=== PATIENT | female | born 1985 | race Caucasian/White ===

== ENCOUNTER 2024-01-05 05:02 | Inpatient (IN) | payer BC ==
[~2024-01-05 05:02] MED LIST: Anucort-HC SUPPOSITORY PR PRN; BENADRYL 50 MG/ML IV PRN; CLARITIN 10 MG PO PRN; CORTISONE 1% CREAM TP PRN; DEMEROL 50 MG IV PRN; Dulcolax 10 MG SUPP PR PRN; HOLD NARCOTIC ANALGESICS AND SEDATIVES X24 HR MC PRN; MORPHINE SULFATE 2 MG INJ IV PRN; Mylicon 80MG PO PRN; Narcan 0.4 MG/ML IV PRN; Nubain 10 MG/ML IV PRN; PERCOCET TABLET 5/325MG PO PRN; Pepcid 20 MG VIAL IV SCH; Reglan 10 MG/2 ML IV SCH; Sodium Chloride 0.9% 10 ML FLUSH Syringe IJ PRN; TUCKS TP PRN
[2024-01-05 06:06] LABS: Absolute Neutrophil Ct (ANC) 5.42 x10^3/uL (1.4-6.9); BASOPHIL % 0.6 % (0.0-0.4); Basophil (Absolute #) 0.05 x10^3/uL (0-0.4); Eosinophil % 1.3 % (0.00-5.0); Eosinophil (Absolute #) 0.11 x10^3/uL (0-0.5); Hematocrit 33.5 % (35-47); Hemoglobin 10.9 g/dL (12.0-16.0); IMMATURE GRAN # 0.03 x10^3u/L (0.00-0.03); IMMATURE GRAN % 0.4 % (0.00-0.4); Lymphocytes % 27.5 % (24.0-44.0); Mean Cell Volume 95.2 fL (78-100); Mean Corpuscular Hgb Concent. 32.5 g/dL (32-36); Monocyte (Absolute #) 0.46 x10^3/uL (0.0-1.3); Monocytes % 5.5 % (0.0-12.0); Neutrophil % 64.7 % (36.0-66.0); Platelet Count 358 x10^3/uL (150-450); Red Blood Count 3.52 x10^6/uL (4.1-5.4); Red Cell Distribution Width 14.6 % (11.5-14.0); White Blood Count 8.4 x10^3/uL (4.0-10.5)
[2024-01-05 06:16] LABS: INR 0.86 (0.8-3.0); PROTIME 9.5 SECONDS (9.4-12.5); PTT 24.4 SECONDS (25.1-36.5)
[2024-01-05 06:29] LABS: Appearance Clear (Clear); Bacteria None Seen /HPF (None Seen); Bilirubin Negative (Negative); Blood Negative (Negative); Epithelial Cells None Seen /HPF (None Seen); Glucose, Urine Negative (Negative); Hyaline Casts NONE SEEN /LPF (0-2); Ketones Trace (Negative); Leukocyte Esterase Negative (Negative); Nitrite Negative (Negative); Protein,Urine Dip Negative (Negative); RBC 0-2 /HPF (0-5); Urobilinogen 0.2 mg/dL (0.2); WBC 0-2 /HPF (0-5)
[2024-01-05 06:30] LABS: ADD URINE CULTURE? NO (NO)
[2024-01-05 06:56] LABS: ABO TYPING O; Antibody Screen NEGATIVE (NEGATIVE); RH TYPING POSITIVE
[2024-01-05 07:47] LABS: Amphetamine,Urine NEGATIVE (NEGATIVE); Barbiturate,Urine NEGATIVE (NEGATIVE); Benzodiazepine,Urine NEGATIVE (NEGATIVE); Cocaine,Urine NEGATIVE (NEGATIVE); Methadone,Urine NEGATIVE (NEGATIVE); Opiate,Urine NEGATIVE (NEGATIVE); PCP,Urine NEGATIVE (NEGATIVE); THC,Urine NEGATIVE (NEGATIVE)
[2024-01-05] MEDS: SOD CITRATE-CITRIC ACID SOLN PO SCH (08:02)
[2024-01-05] MEDS: CEFAZOLIN 2 GM-D5W BAG** 2 GM/50 ML ML IV SCH (08:03)
[2024-01-05] MEDS: Lactated Ringers 1,000 ML IV ONE (08:03)
[2024-01-05] MEDS: Reglan 10 MG/2 ML IV SCH (08:07)
[2024-01-05] MEDS: Pepcid 20 MG VIAL IV SCH (08:07)
[2024-01-05] MEDS ORDERED: Astramorph-Pf 5 MG/10 ML ONE (08:24)
[2024-01-05] MEDS ORDERED: Pitocin 10 UNITS/ML ONE ×2 (08:25→09:59)
[2024-01-05] MEDS ORDERED: Lactated Ringers 2,000 ML IV ONE (08:39)
[2024-01-05] MEDS ORDERED: PHENYLEPHRINE HCL ONE (08:47)
[2024-01-05] MEDS ORDERED: Versed 2 MG/2 ML Injection ONE (09:39)
[2024-01-05] MEDS ORDERED: AlbuRx 25% 50ML VIAL*** 100 ML IV ONE (09:42)
[2024-01-05] MEDS ORDERED: DIPRIVAN 200 MG/20 ML IV ONE (09:49)
[2024-01-05] MEDS ORDERED: Lactated Ringers 1,000 ML IV ONE (09:53)
[2024-01-05] MEDS ORDERED: Naropin 0.5% 30 ML VIAL ONE (10:02)
[2024-01-05] MEDS ORDERED: Epinephrine Preservative Free 1 MG/ML ONE (10:02)
--- NOTE | 2024-01-05 10:46 | OP ---
OB OP NOTE - OPERATIVE NOTE Surgery Date: 01/05/24 Surgery Time: 09:01 PREOPERATIVE DIAGNOSIS: IUP 37 0/7 weeks, History of myomectomy, Gestational Diabetes, Advanced Maternal Age. POST OPERATIVE DIAGNOSIS: Same Procedure: Primary Low Transverse Section Surgeon: DO Brody ANESTHESIA: Spinal with Duramorph ESTIMATED BLOOD LOSS: 1619 cc CONDITION: Stable COMPLICATIONS: Adhesions from prior abdominal surgery. HISTORY - HISTORY HISTORY: HISTORY: 38yo at 37 0/7 weeks scheduled for Primary Low Transverse Section. Patient had a Myomectomy from a fundal location, abdominal surgery. Patient had M consult and their recomendation was for Primary Delivery between 37 0/7 and 38 6/7. Patient was Gestational Diabetic and Advanced maternal age. During routine testing, patient found to be kiko. It was decided to perform Primary Section at 37 0/7. FINDINGS - FINDINGS FINDINGS: FINDINGS: Living male weighing 713oz and Apgars of 8/9. Normal tubes and ovaries bilaterally. Several adhesions at level of peritoneum making entry into cavity difficult. DESCRIPTION OF PROCEDURE - DESCRIPTION OF PROCEDURE DESCRIPTION OF PROCEDURE: DESCRIPTION OF PROCEDURE: Patient was taken to operative suite and placed on the table in the sitting postion. Monitors were placed. Anesthesia administered Spinal anesthesia and Duramorph. Patient was then placed in the supine position. Patient was prepped and draped in the usual fashion. A time out was performed. Ancef 2 grams was given IV in the OR prior to starting the procedure. Patient's prior incision was visualized. It was 2 fingers above the symphysis. Skin incision was made in the [place] fashion with the knife. Skin incision was carried to the fascia utilizing the scalpel and the bovie cautery. Small bleeders were cauterized in the subcutaneous tissue. The fascia was incised in the midline. The fascial incision was extended laterally with curved mayos and pickups with teeth. This was performed bilaterally. Two kochers were placed on the superior edge of the fascia and it was elevated. Blunt dissection and zuniga scissors were utilized to dissect the fascia from the rectus muscle. Two kochers were placed on the inferior edge of the fascia and blunt and sharp dissection with zuniga scissors was performed to separate the fascia from the underlying muscles. Attention was directed to the peritroneum in the midline. Hemostats were placed, but significant scar tissue prevented separation in the midline. Zuniga and metezenbaum scissors were utilized to extend incision. Blunt dissection was carried out and the peritoneal cavity was exposed. The uterus was checked for rotation and was found to be to the left of midline. The peritoneum was elevated at the bladder flap and metzenbaum scissors were utilized to make incision. An anamolus vein was to the left of midline and was leaking blood. 3-4, 2-0 and 0 Vicryl sutures were placed to stop the bleeding. These were tagged for identification later in the procedure. Attention was directed to the lower uterine segment. A Knife was utilized in a low transverse fashion to make the uterine incision. Finger fracture technique was utilized to extend the uterine incision. Several veins started bleeding. The amniotic sac was visualized and ruptured with an Allis clamp. Clear fluid was present. The infants head was grasped with the surgeons hand and fundal pressure applied. The head was very high in the uterus. The head was ROT. There did not appear to be enough room for delivery of the head so the right rectus muscle was transected with bandage scissors. Fundal pressure was re- applied and the surgeon's hand utilized to attempt to guide the head for delivery. A kiwi vacuum was placed on the field. It was placed on the infant's head at 9:20 am, there was a pop-off at 9:21. 9:22 vacuum re-applied and head delivered at 9:22. The remainder of the delivered spontaneously. There was a loose nuchal cord. There was 5 minutes between AROM and delivery of . Living male weighing 7# 13 oz with apgars of 8/9. was handed to RN in attendance. was crying spontaneously. The uterus was externalized from the abdominal cavity and wrapped in a warm, moist lap. Penningtons were placed along the uterine incision. 0 Vicryl in a running, interlocking fashion. There was continued bleeding from several veins along the uterine incision. A second layer of 0-vicryl in a running fashion to obtain hemostasis. There continued to be bleeding from several veins on the uterus. Several interrupted sutures of 0-Vicryl were placed along the uterine incision to obtain hemostasis. Irrigation was performed. Lap and suture count was performed and was correct. The sutures tagged earlier were inspected, hemostatic and the tags cut. A lap placed over uterus and attention directed to the cul de sac. Irrigation was cul de sac was performed. The uterus was returned to the abdominal cavity. The pericolic gutters were irrigated and clots removed. The uterine incision was re-inspected and there was bleeding found on the maternal right side of the uterus. 2 figure of 8 of 0 Vicryl was placed to obtain hemostasis. Attention was directed to the right rectus muscle. Allis clamps were placed on the edges of the muscle. #1 Chromic was utilized in figure of 8 fashion and two interrupted sutures to re-approximate the rectus muscle. One suture of Chromic was utilized in the midline to re-approximate the rectus muscles in the midline. Irreigation was performed and everything was hemostatic. Lap and suture count was performed and was correct. 0-Vicryl was utilized in a running fashion to close the fascia. Good approximation was obtained. Irrigation was performed. Attention was directed to subcutaneous tissue and irrigation performed. 3-0 Vicryl, coated in antibiotics was utilized to close subcutaneous tissue. Insorb stapler was utilized to close the skin, some steri-strips were placed in the midline of the skin. Adhesive dressing was placed in the sterile fashion. Lap, needle and instrument counts were correct. EBL is 1619.
[2024-01-05 10:47] LABS: Hematocrit 28.2 % (35-47); Hemoglobin 9.1 g/dL (12.0-16.0)
[2024-01-05] MEDS: Zofran 4 MG/2 ML VIAL IV PRN (13:45)
[2024-01-05] MEDS ORDERED: Adacel Vial IM ONE (15:00)
[2024-01-05 15:07] LABS: Appearance Clear (Clear); Bacteria None Seen /HPF (None Seen); Bilirubin Negative (Negative); Blood Negative (Negative); Epithelial Cells None Seen /HPF (None Seen); Glucose, Urine Negative (Negative); Hyaline Casts NONE SEEN /LPF (0-2); Ketones 40 (Negative); Leukocyte Esterase Negative (Negative); Nitrite Negative (Negative); Protein,Urine Dip Negative (Negative); RBC 0-2 /HPF (0-5); Urobilinogen 0.2 mg/dL (0.2); WBC 0-2 /HPF (0-5)
[2024-01-05] MEDS: Compazine 10 MG/2 ML IV SCH (16:56)
[2024-01-05] MEDS: Dextrose 5%-Lr IV Solution 1000 ML 1,000 ML IV SCH (17:02)
--- NOTE | 2024-01-05 17:19 | PCM.NOTE ---
Date and Time: 01/05/24 177 Subjective Assessment: POD#0, Nausea and vomiting, Attempting to control with Compazine. Repeat CBC being drawn while present in the room. COntinure routine Post-operative orders. - Review of Systems Abdominal/Gastrointestinal: Nausea, Vomiting (Patient is unable to keep fluids or food down. Patient has had two doses of zofran and is receiving Compazine during exam.) OBJECTIVE DATA Vital Signs: Vital Signs - 24 hr Temp Pulse Resp BP Pulse Ox 01/05/24 13:30 82 20 101/60 100 01/05/24 13:00 100 01/05/24 12:15 97.8 F 85 18 114/57 100 01/05/24 12:00 97.8 F 85 18 114/57 100 01/05/24 11:45 82 18 123/58 100 01/05/24 11:30 88 18 134/53 100 01/05/24 11:15 84 20 136/60 100 01/05/24 11:00 97.8 F 85 18 136/60 100 01/05/24 08:25 98.1 F 79 18 119/67 99 01/05/24 06:20 98.4 F 81 16 116/77 97 01/05/24 05:30 97 01/05/24 05:19 98.4 F 81 16 116/77 97 01/05/24 05:02 98.4 F 81 16 116/77 97 Pain Assessment - Last Documented Pain Intensity 0 Intake and Output: Intake & Output 01/03/24 01/04/24 01/05/24 01/06/24 11:59 11:59 11:59 11:59 Output Total 800 Balance -800 Weight 86.636 kg Lab Results: Lab Results-Last 24 Hours 01/05/24 01/05/24 01/05/24 Range/Units 05:50 05:50 05:50 WBC 8.4 (4.0-10.5) x10^3/uL RBC 3.52 L (4.1-5.4) x10^6/uL Hgb 10.9 L (12.0-16.0) g/dL Hct 33.5 L (35-47) % MCV 95.2 (78-100) fL MCH 31.0 (26-32) pg MCHC 32.5 (32-36) g/dL RDW 14.6 H (11.5-14.0) % Plt Count 358 (150-450) x10^3/uL MPV 9.0 (7.5-11.0) fL Gran % 64.7 (36.0-66.0) % Immature Gran % (Auto) 0.4 (0.00-0.4) % Nucleat RBC Rel Count 0.0 (0.00-0.1) % Eos # (Auto) 0.11 (0-0.5) x10^3/uL Immature Gran # (Auto) 0.03 (0.00-0.03) x10^3u/L Absolute Lymphs (auto) 2.30 (1.0-4.6) x10^3/uL Absolute Monos (auto) 0.46 (0.0-1.3) x10^3/uL Absolute Nucleated RBC 0.00 (0.00-0.01) x10^3u/L Lymphocytes % 27.5 (24.0-44.0) % Monocytes % 5.5 (0.0-12.0) % Eosinophils % 1.3 (0.00-5.0) % Basophils % 0.6 (0.0-0.4) % Absolute Granulocytes 5.42 (1.4-6.9) x10^3/uL Basophils # 0.05 (0-0.4) x10^3/uL PT 9.5 (9.4-12.5) SECONDS INR 0.86 (0.8-3.0) APTT 24.4 L (25.1-36.5) SECONDS POC Glucometer (74 to 106) mg/dL Urine Color (Yellow) Urine Appearance (Clear) Urine pH (4.6-8.0) Ur Specific [place] (1.005-1.030) Urine Protein (Negative) Urine Glucose (UA) (Negative) mg/dL Urine Ketones (Negative) Urine Blood (Negative) Urine Nitrite (Negative) Urine Bilirubin (Negative) Urine Urobilinogen (0.2) mg/dL Ur Leukocyte Esterase (Negative) U Hyaline Cast (Auto) (0-2) /LPF Urine Microscopic RBC (0-5) /HPF Urine Microscopic WBC (0-5) /HPF Ur Epithelial Cells (None Seen) /HPF Urine Bacteria (None Seen) /HPF Urine Culture Reflexed (NO) Urine Opiates Level (NEGATIVE) Ur Methadone (NEGATIVE) Urine Barbiturates (NEGATIVE) Ur Phencyclidine (PCP) (NEGATIVE) Urine Amphetamine (NEGATIVE) U Benzodiazepine Level (NEGATIVE) Urine Cocaine (NEGATIVE) Urine Marijuana (THC) (NEGATIVE) ABO Group O Rh Factor POSITIVE Antibody Screen NEGATIVE (NEGATIVE) 01/05/24 01/05/24 01/05/24 Range/Units 06:00 10:42 14:57 WBC (4.0-10.5) x10^3/uL RBC (4.1-5.4) x10^6/uL Hgb 9.1 L (12.0-16.0) g/dL Hct 28.2 L (35-47) % MCV (78-100) fL MCH (26-32) pg MCHC (32-36) g/dL RDW (11.5-14.0) % Plt Count (150-450) x10^3/uL MPV (7.5-11.0) fL Gran % (36.0-66.0) % Immature Gran % (Auto) (0.00-0.4) % Nucleat RBC Rel Count (0.00-0.1) % Eos # (Auto) (0-0.5) x10^3/uL Immature Gran # (Auto) (0.00-0.03) x10^3u/L Absolute Lymphs (auto) (1.0-4.6) x10^3/uL Absolute Monos (auto) (0.0-1.3) x10^3/uL Absolute Nucleated RBC (0.00-0.01) x10^3u/L Lymphocytes % (24.0-44.0) % Monocytes % (0.0-12.0) % Eosinophils % (0.00-5.0) % Basophils % (0.0-0.4) % Absolute Granulocytes (1.4-6.9) x10^3/uL Basophils # (0-0.4) x10^3/uL PT (9.4-12.5) SECONDS INR (0.8-3.0) APTT (25.1-36.5) SECONDS POC Glucometer 76 (74 to 106) mg/dL Urine Color Yellow (Yellow) Urine Appearance Clear (Clear) Urine pH 7.0 (4.6-8.0) Ur Specific [place] 1.010 (1.005-1.030) Urine Protein Negative (Negative) Urine Glucose (UA) Negative (Negative) mg/dL Urine Ketones 40 A (Negative) Urine Blood Negative (Negative) Urine Nitrite Negative (Negative) Urine Bilirubin Negative (Negative) Urine Urobilinogen 0.2 (0.2) mg/dL Ur Leukocyte Esterase Negative (Negative) U Hyaline Cast (Auto) NONE SEEN (0-2) /LPF Urine Microscopic RBC 0-2 (0-5) /HPF Urine Microscopic WBC 0-2 (0-5) /HPF Ur Epithelial Cells None Seen (None Seen) /HPF Urine Bacteria None Seen (None Seen) /HPF Urine Culture Reflexed (NO) Urine Opiates Level (NEGATIVE) Ur Methadone (NEGATIVE) Urine Barbiturates (NEGATIVE) Ur Phencyclidine (PCP) (NEGATIVE) Urine Amphetamine (NEGATIVE) U Benzodiazepine Level (NEGATIVE) Urine Cocaine (NEGATIVE) Urine Marijuana (THC) (NEGATIVE) ABO Group Rh Factor Antibody Screen (NEGATIVE) 01/05/24 01/05/24 Range/Units Unknown Unknown WBC (4.0-10.5) x10^3/uL RBC (4.1-5.4) x10^6/uL Hgb (12.0-16.0) g/dL Hct (35-47) % MCV (78-100) fL MCH (26-32) pg MCHC (32-36) g/dL RDW (11.5-14.0) % Plt Count (150-450) x10^3/uL MPV (7.5-11.0) fL Gran % (36.0-66.0) % Immature Gran % (Auto) (0.00-0.4) % Nucleat RBC Rel Count (0.00-0.1) % Eos # (Auto) (0-0.5) x10^3/uL Immature Gran # (Auto) (0.00-0.03) x10^3u/L Absolute Lymphs (auto) (1.0-4.6) x10^3/uL Absolute Monos (auto) (0.0-1.3) x10^3/uL Absolute Nucleated RBC (0.00-0.01) x10^3u/L Lymphocytes % (24.0-44.0) % Monocytes % (0.0-12.0) % Eosinophils % (0.00-5.0) % Basophils % (0.0-0.4) % Absolute Granulocytes (1.4-6.9) x10^3/uL Basophils # (0-0.4) x10^3/uL PT (9.4-12.5) SECONDS INR (0.8-3.0) APTT (25.1-36.5) SECONDS POC Glucometer (74 to 106) mg/dL Urine Color Yellow (Yellow) Urine Appearance Clear (Clear) Urine pH 7.0 (4.6-8.0) Ur Specific [place] 1.010 (1.005-1.030) Urine Protein Negative (Negative) Urine Glucose (UA) Negative (Negative) mg/dL Urine Ketones Trace A (Negative) Urine Blood Negative (Negative) Urine Nitrite Negative (Negative) Urine Bilirubin Negative (Negative) Urine Urobilinogen 0.2 (0.2) mg/dL Ur Leukocyte Esterase Negative (Negative) U Hyaline Cast (Auto) NONE SEEN (0-2) /LPF Urine Microscopic RBC 0-2 (0-5) /HPF Urine Microscopic WBC 0-2 (0-5) /HPF Ur Epithelial Cells None Seen (None Seen) /HPF Urine Bacteria None Seen (None Seen) /HPF Urine Culture Reflexed NO (NO) Urine Opiates Level NEGATIVE (NEGATIVE) Ur Methadone NEGATIVE (NEGATIVE) Urine Barbiturates NEGATIVE (NEGATIVE) Ur Phencyclidine (PCP) NEGATIVE (NEGATIVE) Urine Amphetamine NEGATIVE (NEGATIVE) U Benzodiazepine Level NEGATIVE (NEGATIVE) Urine Cocaine NEGATIVE (NEGATIVE) Urine Marijuana (THC) NEGATIVE (NEGATIVE) ABO Group Rh Factor Antibody Screen (NEGATIVE) Assessment/Plan (1) delivery delivered Current Visit: Yes Status: Acute Code(s): O82 - ENCOUNTER FOR DELIVERY WITHOUT INDICATION
[2024-01-05 17:27] LABS: Hematocrit 27.4 % (35-47); Hemoglobin 8.9 g/dL (12.0-16.0)
[2024-01-05] MEDS: Docusate Sodium 100 MG PO SCH (19:37)
[2024-01-05] MEDS: FERREX 150 PO SCH (19:37)
[2024-01-05] MEDS: MOTRIN 400 MG PO PRN (20:00)
[2024-01-06] MEDS: LANSINOH 40 GM TOP PRN (04:34)
[2024-01-06 04:51] LABS: Absolute Neutrophil Ct (ANC) 9.39 x10^3/uL (1.4-6.9); BASOPHIL % 0.5 % (0.0-0.4); Basophil (Absolute #) 0.07 x10^3/uL (0-0.4); Eosinophil % 0.9 % (0.00-5.0); Eosinophil (Absolute #) 0.12 x10^3/uL (0-0.5); Hematocrit 25.2 % (35-47); Hemoglobin 8.1 g/dL (12.0-16.0); IMMATURE GRAN # 0.04 x10^3u/L (0.00-0.03); IMMATURE GRAN % 0.3 % (0.00-0.4); Lymphocyte (Absolute #) 2.49 x10^3/uL (1.0-4.6); Lymphocytes % 19.1 % (24.0-44.0); Mean Cell Volume 96.2 fL (78-100); Mean Corpuscular Hemoglobin 30.9 pg (26-32); Mean Corpuscular Hgb Concent. 32.1 g/dL (32-36); Mean Platelet Volume 9.1 fL (7.5-11.0); Monocytes % 6.9 % (0.0-12.0); Neutrophil % 72.3 % (36.0-66.0); Platelet Count 286 x10^3/uL (150-450); Red Blood Count 2.62 x10^6/uL (4.1-5.4); Red Cell Distribution Width 14.6 % (11.5-14.0)
[2024-01-06] MEDS ORDERED: DEMEROL 50 MG IV PRN (05:00)
[2024-01-06] MEDS ORDERED: NORCO 5/325 MG PO PRN (05:00)
[2024-01-06] MEDS: M-M-R II Vaccine With Diluent SQ ONE (07:50)
[2024-01-06] MEDS ORDERED: PERCOCET TABLET 5/325MG PO PRN (09:00)
[2024-01-06] MEDS: TYLENOL EXTRA STRENGTH 500 MG PO PRN (13:03)
[2024-01-06] MEDS: THERAGRAN MULTIVITAMIN PO SCH (13:03)
[2024-01-06] MEDS: MOTRIN 600 MG PO PRN (17:59)
[2024-01-06] MEDS ORDERED: Rhogam Plus 300 MCG IM ONE (18:00)
[2024-01-07 02:11] VITALS: TEMP 98.3; O2SAT 96
[2024-01-07 06:28] LABS: Hematocrit 24.8 % (35-47); Mean Cell Volume 95.8 fL (78-100); Mean Corpuscular Hemoglobin 30.9 pg (26-32); Mean Corpuscular Hgb Concent. 32.3 g/dL (32-36); Mean Platelet Volume 8.5 fL (7.5-11.0); Platelet Count 316 x10^3/uL (150-450); Red Blood Count 2.59 x10^6/uL (4.1-5.4); Red Cell Distribution Width 14.7 % (11.5-14.0); White Blood Count 10.9 x10^3/uL (4.0-10.5)
[2024-01-07 07:43] VITALS: BP 111/63; PULSE 88; RESP 18
== END 2024-01-07 15:06 | disposition home or self-care (01) | DRG 788 ==
LOC: OB 05:02
PROVIDERS: ADMIT Obstetrics & Gynecology; ATTEND Obstetrics & Gynecology
PROC: 10D00Z1 Extraction of Products of Conception, Low, Open Approach (ICD-10-PCS; principal; 2024-01-05)
DX: O24.429 Gestational diabetes mellitus in childbirth, unspecified control (principal); O09.523 Supervision of elderly multigravida, third trimester; Z3A.37 37 weeks gestation of pregnancy; Z37.0 Single live birth; R11.2 Nausea with vomiting, unspecified; Z20.828 Contact with and (suspected) exposure to other viral communicable diseases
CPT/HCPCS: 36415; 59514; 62322; 64488; 76937; 76942; 80307; 81001; 82947; 85014; 85018; 85025; 85027; 85610; 85730; 86850; 86900; 86901; 87086; 90471; 90707; J0171; J0690; J2250; J2274; J2371; J2405; J2590; J2704; J2795; L0625; P9047; A9270-GY